=== PATIENT | male | born 1950 | race African-American/Black ===

== ENCOUNTER 2022-03-25 15:09 | Inpatient (IN) | payer OTHER, MEDICAID ==
[~2022-03-25] VITALS: Ht 177.8 cm; Wt 88.9 kg
[2022-03-25] MEDS ORDERED: SODIUM CHLORIDE 0.9% 1000ML BAG (SEPSIS BOLUS) IV ONE (16:30)
[2022-03-25] MEDS ORDERED: TETANUS, DIPHTHERIA, PERTUSSIS VAC/PF 0.5ML (>10YR OLD) IM ONE (17:15)
[2022-03-25] MEDS ORDERED: IBUPROFEN 400MG TABLET PO ONE (17:15)
[2022-03-25] MEDS ORDERED: ACETAMINOPHEN 325MG TABLET PO ONE (17:15)
[2022-03-25] MEDS: LIDOCAINE 5% PATCH TOP SCH (17:36)
[2022-03-25 17:53] LABS: HEMATOCRIT. 32.7 % (42.0-52.0); HEMOGLOBIN. 10.6 g/dL (14.0-18.0); MEAN CORPUSCULAR HEMOGLOBIN 30.6 pg (28.0-32.0); MEAN CORPUSCULAR VOLUME 94.2 fL (80.0-94.0); MEAN PLATELET VOLUME 7.3 fl (7.4-10.4); PLATELET 102 x1000/uL (130-400); RED BLOOD CELL COUNT 3.47 mill/uL (4.7-6.1)
[2022-03-25 18:05] LABS: CHLORIDE 111 mEq/L (98-107)
[2022-03-25 18:07] LABS: INR 1.1; PARTIAL THROMBOPLASTIN TIME 35.8 sec (23.4-31.0); PROTHROMBIN TIME 12.1 sec (9.6-11.0)
[2022-03-25 19:24] LABS: CLARITY URINE CLEAR (CLEAR); COLOR URINE DARK YELLOW (YELLOW); KETONES URINE NEGATIVE (NEGATIVE); LEUKOCYTE ESTERASE URINE TRACE (NEGATIVE); NITRITE URINE NEGATIVE (NEGATIVE); OCCULT BLOOD URINE 1+ (NEGATIVE); PH URINE 5.5 (4.5-8.0); PROTEIN URINE 1+ (NEGATIVE); SPECIFIC GRAVITY URINE 1.022 (1.005-1.030)
[2022-03-26] MEDS ORDERED: FOLI-43 PO (02:26)
[2022-03-26] MEDS ORDERED: FINA5TAB11 PO (02:26)
[2022-03-26] MEDS ORDERED: LATA2.5D14 EACHEYE (02:26)
[2022-03-26] MEDS ORDERED: CARV3.1242 PO (02:26)
[2022-03-26] MEDS ORDERED: FERR325T6 PO (02:26)
[2022-03-26] MEDS ORDERED: FURO40TA5 PO (02:26)
[2022-03-26] MEDS ORDERED: IPRA3AMP9 NEB (02:26)
[2022-03-26] MEDS ORDERED: DORZ10DR8 OP (02:37)
[2022-03-26] MEDS ORDERED: DOCU-150 PO (02:37)
[2022-03-26] MEDS ORDERED: BISA10SU62 RC (02:37)
[2022-03-26] MEDS ORDERED: MECL-217 PO (02:38)
[2022-03-26] MEDS ORDERED: TOPUD PO (02:42)
[2022-03-26] MEDS ORDERED: TRAM50TA3 PO (02:42)
[2022-03-26] MEDS ORDERED: OLOP5DRO25 EACHEYE (02:42)
[2022-03-26] MEDS ORDERED: SILV20CR13 TP (02:42)
[2022-03-26] MEDS ORDERED: TRAMADOL 50MG TABLET PO PRN (03:30)
[2022-03-26 03:57] VITALS: BP 115/62
[2022-03-26 04:48] LABS: PLATELET ESTIMATE DECREASED
[2022-03-26] MEDS: GABAPENTIN 100MG CAPSULE PO SCH ×3 (06:00→23:06)
[2022-03-26] MEDS: DORZOLAMIDE 2% OPHTH 10 ML BOTTLE BOTHEYE SCH ×3 (06:00→23:06)
[2022-03-26 08:00] VITALS: BP 118/72
[2022-03-26] MEDS: ASCORBIC ACID 500 MG TABLET PO SCH (08:42)
[2022-03-26] MEDS: DOCUSATE SODIUM 100MG CAPSULE PO SCH ×2 (08:42→17:07)
[2022-03-26] MEDS: FERROUS SULFATE 325MG TABLET PO SCH ×3 (08:42→17:07)
[2022-03-26] MEDS: FINASTERIDE 5MG TABLET PO SCH (08:43)
[2022-03-26] MEDS: FOLIC ACID 1MG TABLET PO SCH (08:43)
[2022-03-26] MEDS: CARVEDILOL 3.125 MG TABLET PO SCH ×2 (09:00→17:07)
[2022-03-26 12:00] VITALS: BP 102/69
[2022-03-26 12:15] LABS: HEMATOCRIT. 30.4 % (42.0-52.0); MEAN CORPUSCULAR HEMOGLOBIN 30.5 pg (28.0-32.0); MEAN CORPUSCULAR VOLUME 92.6 fL (80.0-94.0); MEAN PLATELET VOLUME 7.1 fl (7.4-10.4); PLATELET 93 x1000/uL (130-400); RED BLOOD CELL COUNT 3.29 mill/uL (4.7-6.1); RED CELL DISTRIBUTION WIDTH 16.6 % (11.6-14.6)
[2022-03-26 13:42] LABS: PLATELET ESTIMATE SLIGHTLY DECREASED
[2022-03-26 14:36] LABS: CHLORIDE 111 mEq/L (98-107)
[2022-03-26 16:00] VITALS: BP 132/75
[2022-03-26] MEDS: LIDOCAINE 5% PATCH TOP SCH (17:08)
[2022-03-26 20:00] VITALS: BP 113/63
[2022-03-26] MEDS ORDERED: ONDANSETRON HCL 4MG/2ML INJ IV PRN (20:00)
[2022-03-26] MEDS ORDERED: HYDROCODONE/ACETAMINOPHEN 5/325MG TABLET PO PRN (20:00)
[2022-03-26] MEDS ORDERED: CLONIDINE 0.1MG TABLET PO PRN (20:00)
[2022-03-26] MEDS ORDERED: MAGNESIUM/ALUMINUM HYDROXIDE/SIMETHICONE 30ML UDC PO PRN (20:00)
[2022-03-26] MEDS: ENOXAPARIN 40MG/0.4ML SYR SUBCUT SCH (23:05)
[2022-03-26] MEDS: LATANOPROST 0.005% OPHTH DROPS 2.5ML BOTHEYE SCH (23:05)
[2022-03-27] VITALS: BP 103/60
[2022-03-27] MEDS: CEFTRIAXONE 1,000 MG in DEXTROSE 5% WATER 50 ML IV SCH ×2 (00:29→20:39)
[2022-03-27 04:00] VITALS: BP 115/60
[2022-03-27 05:30] LABS: BASOPHILS % 0.8 % (0.0-2.0); EOSINOPHILS % 0.1 % (0.0-5.0); HEMATOCRIT. 31.7 % (42.0-52.0); HEMOGLOBIN. 10.3 g/dL (14.0-18.0); LYMPHOCYTES % 56.5 % (20.0-50.0); MEAN CORPUSCULAR HEMOGLOBIN 30.1 pg (28.0-32.0); MEAN CORPUSCULAR VOLUME 92.9 fL (80.0-94.0); MEAN PLATELET VOLUME 7.1 fl (7.4-10.4); NEUTROPHILS % 37.6 % (40.0-76.0); PLATELET 108 x1000/uL (130-400); RED BLOOD CELL COUNT 3.41 mill/uL (4.7-6.1); RED CELL DISTRIBUTION WIDTH 16.6 % (11.6-14.6)
[2022-03-27] MEDS: GABAPENTIN 100MG CAPSULE PO SCH ×4 (06:10→21:32)
[2022-03-27] MEDS: FERROUS SULFATE 325MG TABLET PO SCH ×3 (06:10→18:01)
[2022-03-27] MEDS: OMEPRAZOLE 20MG CAPSULE EXTENDED RELEASE PO SCH (06:10)
[2022-03-27] MEDS: DORZOLAMIDE 2% OPHTH 10 ML BOTTLE BOTHEYE SCH ×3 (06:10→21:29)
[2022-03-27] MEDS: ACETAMINOPHEN 325MG TABLET PO PRN (06:21)
[2022-03-27 08:00] VITALS: BP 82/44
[2022-03-27 08:18] LABS: CHLORIDE 111 mEq/L (98-107)
[2022-03-27 08:35] LABS: HDL CHOLESTEROL 16 mg/dL (40-59); LDL CHOLESTEROL 69 mg/dL (5-100); PHOSPHORUS 2.8 mg/dL (2.5-4.9)
[2022-03-27] MEDS: CARVEDILOL 3.125 MG TABLET PO SCH (09:00)
[2022-03-27] MEDS: DOCUSATE SODIUM 100MG CAPSULE PO SCH ×2 (09:10→18:00)
[2022-03-27] MEDS: FINASTERIDE 5MG TABLET PO SCH (09:10)
[2022-03-27] MEDS: ASCORBIC ACID 500 MG TABLET PO SCH (09:10)
[2022-03-27] MEDS: FOLIC ACID 1MG TABLET PO SCH (09:10)
[2022-03-27 12:00] VITALS: BP 83/44
[2022-03-27] MEDS ORDERED: SODIUM CHLORIDE 0.9% 500 ML IV NR (14:15)
[2022-03-27] MEDS ORDERED: AZITHROMYCIN 500 MG TABLET PO NR (15:30)
[2022-03-27 16:00] VITALS: BP 89/51
[2022-03-27] MEDS ORDERED: NALOXONE HCL 0.4MG/ML VIAL IV PRN (16:30)
[2022-03-27] MEDS: LIDOCAINE 5% PATCH TOP SCH (17:15)
[2022-03-27 20:00] VITALS: BP 97/63
[2022-03-27] MEDS: LATANOPROST 0.005% OPHTH DROPS 2.5ML BOTHEYE SCH (20:39)
[2022-03-27] MEDS: ENOXAPARIN 40MG/0.4ML SYR SUBCUT SCH (20:39)
[2022-03-28] VITALS: BP 93/57
[2022-03-28 04:00] VITALS: BP 95/60
[2022-03-28] MEDS: OMEPRAZOLE 20MG CAPSULE EXTENDED RELEASE PO SCH (05:42)
[2022-03-28] MEDS: GABAPENTIN 100MG CAPSULE PO SCH ×3 (05:42→22:01)
[2022-03-28] MEDS: DORZOLAMIDE 2% OPHTH 10 ML BOTTLE BOTHEYE SCH ×3 (05:44→22:03)
[2022-03-28 08:00] VITALS: BP 115/66
[2022-03-28] MEDS: AZITHROMYCIN 250 MG TABLET PO SCH (09:20)
[2022-03-28] MEDS: FERROUS SULFATE 325MG TABLET PO SCH ×3 (09:20→16:50)
[2022-03-28] MEDS: ASCORBIC ACID 500 MG TABLET PO SCH (09:20)
[2022-03-28] MEDS: FOLIC ACID 1MG TABLET PO SCH (09:20)
[2022-03-28] MEDS: DOCUSATE SODIUM 100MG CAPSULE PO SCH ×2 (09:20→16:49)
[2022-03-28] MEDS: FINASTERIDE 5MG TABLET PO SCH (09:21)
[2022-03-28 12:00] VITALS: BP 112/72
[2022-03-28] MEDS ORDERED: LIDOCAINE HCL 1% 10 MG/ML 10ML VIAL ONE (13:18)
[2022-03-28 16:00] VITALS: BP 108/80
[2022-03-28] MEDS: LIDOCAINE 5% PATCH TOP SCH (16:49)
[2022-03-28 20:00] VITALS: BP 95/68
[2022-03-28] MEDS ORDERED: IOHEXOL-350 100 ML BOTTLE ONE (21:51)
[2022-03-28] MEDS: ENOXAPARIN 40MG/0.4ML SYR SUBCUT SCH (22:02)
[2022-03-28] MEDS: CEFTRIAXONE 1,000 MG in DEXTROSE 5% WATER 50 ML IV SCH (22:02)
[2022-03-28] MEDS: LATANOPROST 0.005% OPHTH DROPS 2.5ML BOTHEYE SCH (22:03)
[2022-03-29] VITALS: BP 98/61
[2022-03-29 04:00] VITALS: BP 103/76
[2022-03-29] MEDS: GABAPENTIN 100MG CAPSULE PO SCH ×3 (05:40→21:29)
[2022-03-29] MEDS: DORZOLAMIDE 2% OPHTH 10 ML BOTTLE BOTHEYE SCH ×3 (05:40→21:32)
[2022-03-29] MEDS: OMEPRAZOLE 20MG CAPSULE EXTENDED RELEASE PO SCH (05:40)
[2022-03-29 08:00] VITALS: BP 104/70
[2022-03-29] MEDS: AZITHROMYCIN 250 MG TABLET PO SCH (08:30)
[2022-03-29] MEDS: DOCUSATE SODIUM 100MG CAPSULE PO SCH ×2 (08:30→17:50)
[2022-03-29] MEDS: FOLIC ACID 1MG TABLET PO SCH (08:30)
[2022-03-29] MEDS: ASCORBIC ACID 500 MG TABLET PO SCH (08:30)
[2022-03-29] MEDS: FINASTERIDE 5MG TABLET PO SCH (08:30)
[2022-03-29] MEDS: FERROUS SULFATE 325MG TABLET PO SCH ×3 (08:31→17:50)
[2022-03-29 12:00] VITALS: BP 119/62
[2022-03-29 16:00] VITALS: BP 110/66
[2022-03-29] MEDS: LIDOCAINE 5% PATCH TOP SCH (17:50)
[2022-03-29 20:00] VITALS: BP 111/73
[2022-03-29] MEDS: ENOXAPARIN 40MG/0.4ML SYR SUBCUT SCH (21:29)
[2022-03-29] MEDS: CEFTRIAXONE 1,000 MG in DEXTROSE 5% WATER 50 ML IV SCH (21:29)
[2022-03-29] MEDS: LATANOPROST 0.005% OPHTH DROPS 2.5ML BOTHEYE SCH (21:31)
[2022-03-30] VITALS: BP 97/67
[2022-03-30 04:00] VITALS: BP 122/79
[2022-03-30] MEDS: GABAPENTIN 100MG CAPSULE PO SCH ×3 (06:06→22:21)
[2022-03-30] MEDS: OMEPRAZOLE 20MG CAPSULE EXTENDED RELEASE PO SCH (06:06)
[2022-03-30] MEDS: DORZOLAMIDE 2% OPHTH 10 ML BOTTLE BOTHEYE SCH ×3 (06:07→22:22)
[2022-03-30 08:00] VITALS: BP 126/74
[2022-03-30 08:25] LABS: HEMATOCRIT. 27.3 % (42.0-52.0); HEMOGLOBIN. 9.1 g/dL (14.0-18.0); MEAN CORPUSCULAR HEMOGLOBIN 30.5 pg (28.0-32.0); MEAN CORPUSCULAR VOLUME 91.9 fL (80.0-94.0); MEAN PLATELET VOLUME 7.3 fl (7.4-10.4); PLATELET 105 x1000/uL (130-400); RED BLOOD CELL COUNT 2.97 mill/uL (4.7-6.1); RED CELL DISTRIBUTION WIDTH 16.3 % (11.6-14.6)
[2022-03-30] MEDS: FERROUS SULFATE 325MG TABLET PO SCH ×3 (09:17→16:57)
[2022-03-30] MEDS: FINASTERIDE 5MG TABLET PO SCH (09:17)
[2022-03-30] MEDS: FOLIC ACID 1MG TABLET PO SCH (09:17)
[2022-03-30] MEDS: AZITHROMYCIN 250 MG TABLET PO SCH (09:17)
[2022-03-30] MEDS: ASCORBIC ACID 500 MG TABLET PO SCH (09:17)
[2022-03-30] MEDS: DOCUSATE SODIUM 100MG CAPSULE PO SCH ×2 (09:17→16:57)
[2022-03-30 09:55] LABS: CHLORIDE 111 mEq/L (98-107)
[2022-03-30 12:00] VITALS: BP 108/75
[2022-03-30 16:00] VITALS: BP 94/68
[2022-03-30] MEDS: LIDOCAINE 5% PATCH TOP SCH (16:57)
[2022-03-30 17:40] LABS: PLATELET ESTIMATE DECREASED
[2022-03-30 20:00] VITALS: BP 108/70
[2022-03-30] MEDS: ENOXAPARIN 40MG/0.4ML SYR SUBCUT SCH (22:20)
[2022-03-30] MEDS: CEFTRIAXONE 1,000 MG in DEXTROSE 5% WATER 50 ML IV SCH (22:20)
[2022-03-30] MEDS: LATANOPROST 0.005% OPHTH DROPS 2.5ML BOTHEYE SCH (22:21)
[2022-03-31] VITALS: BP 98/62
[2022-03-31 04:00] VITALS: BP 110/72
[2022-03-31] MEDS: GABAPENTIN 100MG CAPSULE PO SCH ×3 (06:13→21:35)
[2022-03-31] MEDS: OMEPRAZOLE 20MG CAPSULE EXTENDED RELEASE PO SCH (06:13)
[2022-03-31] MEDS: DORZOLAMIDE 2% OPHTH 10 ML BOTTLE BOTHEYE SCH ×3 (06:14→21:37)
[2022-03-31] MEDS: FOLIC ACID 1MG TABLET PO SCH (09:38)
[2022-03-31] MEDS: FERROUS SULFATE 325MG TABLET PO SCH ×3 (09:39→18:05)
[2022-03-31] MEDS: FINASTERIDE 5MG TABLET PO SCH (09:39)
[2022-03-31] MEDS: DOCUSATE SODIUM 100MG CAPSULE PO SCH ×2 (09:39→18:04)
[2022-03-31] MEDS: AZITHROMYCIN 250 MG TABLET PO SCH (09:39)
[2022-03-31] MEDS: ASCORBIC ACID 500 MG TABLET PO SCH (09:39)
[2022-03-31 12:00] VITALS: BP 111/82
[2022-03-31 16:00] VITALS: BP 109/63
[2022-03-31] MEDS: LIDOCAINE 5% PATCH TOP SCH (17:15)
[2022-03-31 20:00] VITALS: BP 112/57
[2022-03-31] MEDS: CEFTRIAXONE 1,000 MG in DEXTROSE 5% WATER 50 ML IV SCH (21:35)
[2022-03-31] MEDS: ENOXAPARIN 40MG/0.4ML SYR SUBCUT SCH (21:36)
[2022-03-31] MEDS: LATANOPROST 0.005% OPHTH DROPS 2.5ML BOTHEYE SCH (21:37)
[2022-04-01] VITALS: BP 106/61
[2022-04-01 04:00] VITALS: BP 100/63
[2022-04-01] MEDS: OMEPRAZOLE 20MG CAPSULE EXTENDED RELEASE PO SCH (05:45)
[2022-04-01] MEDS: GABAPENTIN 100MG CAPSULE PO SCH ×3 (05:45→23:53)
[2022-04-01] MEDS: DORZOLAMIDE 2% OPHTH 10 ML BOTTLE BOTHEYE SCH ×3 (05:46→23:55)
[2022-04-01 07:08] LABS: FOLICLE STIMULATING HORMONE 20.5 mIU/mL (1.5-12.4); LUTEINIZING HORMONE 6.3 mIU/mL (1.7-8.6); PROLACTIN 16.8 ng/mL (4.0-15.2)
[2022-04-01 08:00] VITALS: BP 117/75
[2022-04-01] MEDS: ASCORBIC ACID 500 MG TABLET PO SCH (09:19)
[2022-04-01] MEDS: FERROUS SULFATE 325MG TABLET PO SCH ×3 (09:19→16:46)
[2022-04-01] MEDS: DOCUSATE SODIUM 100MG CAPSULE PO SCH ×2 (09:19→16:46)
[2022-04-01] MEDS: FINASTERIDE 5MG TABLET PO SCH (09:19)
[2022-04-01] MEDS: FOLIC ACID 1MG TABLET PO SCH (09:19)
[2022-04-01 12:00] VITALS: BP 103/58
[2022-04-01] MEDS: ACETAMINOPHEN 325MG TABLET PO PRN (12:12)
[2022-04-01 16:00] VITALS: BP 105/61
[2022-04-01] MEDS: LIDOCAINE 5% PATCH TOP SCH (16:48)
[2022-04-01 20:00] VITALS: BP 109/70
[2022-04-01] MEDS: ENOXAPARIN 40MG/0.4ML SYR SUBCUT SCH (23:53)
[2022-04-01] MEDS: LATANOPROST 0.005% OPHTH DROPS 2.5ML BOTHEYE SCH (23:55)
[2022-04-02] VITALS: BP 123/74
[2022-04-02 04:00] VITALS: BP 108/59
[2022-04-02] MEDS: GABAPENTIN 100MG CAPSULE PO SCH ×3 (05:02→22:58)
[2022-04-02] MEDS: DORZOLAMIDE 2% OPHTH 10 ML BOTTLE BOTHEYE SCH ×3 (05:02→23:00)
[2022-04-02 08:00] VITALS: BP 104/47
[2022-04-02] MEDS: FINASTERIDE 5MG TABLET PO SCH (09:36)
[2022-04-02] MEDS: DOCUSATE SODIUM 100MG CAPSULE PO SCH ×2 (09:36→16:37)
[2022-04-02] MEDS: FOLIC ACID 1MG TABLET PO SCH (09:36)
[2022-04-02] MEDS: FERROUS SULFATE 325MG TABLET PO SCH ×3 (09:36→16:37)
[2022-04-02] MEDS: ASCORBIC ACID 500 MG TABLET PO SCH (09:36)
[2022-04-02] MEDS: BROMOCRIPTINE MESYLATE 2.5 MG TABLET PO SCH (09:36)
[2022-04-02 12:00] VITALS: BP 96/52
[2022-04-02] MEDS: GUAIFENESIN-DM 200MG-20MG/10ML UDC PO PRN (12:56)
[2022-04-02 16:00] VITALS: BP 105/67
[2022-04-02] MEDS: LIDOCAINE 5% PATCH TOP SCH (16:47)
[2022-04-02 20:00] VITALS: BP 117/64
[2022-04-02] MEDS: LATANOPROST 0.005% OPHTH DROPS 2.5ML BOTHEYE SCH (22:59)
[2022-04-02] MEDS: ENOXAPARIN 40MG/0.4ML SYR SUBCUT SCH (22:59)
[2022-04-03] VITALS: BP 107/61
[2022-04-03 04:00] VITALS: BP 108/63
[2022-04-03] MEDS: GABAPENTIN 100MG CAPSULE PO SCH ×3 (06:16→22:24)
[2022-04-03] MEDS: DORZOLAMIDE 2% OPHTH 10 ML BOTTLE BOTHEYE SCH ×3 (06:18→22:25)
[2022-04-03 08:00] VITALS: BP 112/66
[2022-04-03] MEDS: BROMOCRIPTINE MESYLATE 2.5 MG TABLET PO SCH (09:19)
[2022-04-03] MEDS: DOCUSATE SODIUM 100MG CAPSULE PO SCH ×2 (09:20→17:09)
[2022-04-03] MEDS: FOLIC ACID 1MG TABLET PO SCH (09:20)
[2022-04-03] MEDS: ASCORBIC ACID 500 MG TABLET PO SCH (09:20)
[2022-04-03] MEDS: FERROUS SULFATE 325MG TABLET PO SCH ×3 (09:20→17:09)
[2022-04-03] MEDS: FINASTERIDE 5MG TABLET PO SCH (09:28)
[2022-04-03 12:00] VITALS: BP 95/57
[2022-04-03 13:33] LABS: HEMATOCRIT. 25.2 % (42.0-52.0); HEMOGLOBIN. 8.3 g/dL (14.0-18.0); MEAN CORPUSCULAR HEMOGLOBIN 30.4 pg (28.0-32.0); MEAN CORPUSCULAR VOLUME 92.5 fL (80.0-94.0); MEAN PLATELET VOLUME 6.9 fl (7.4-10.4); PLATELET 112 x1000/uL (130-400); RED BLOOD CELL COUNT 2.72 mill/uL (4.7-6.1)
[2022-04-03 13:44] LABS: CHLORIDE 113 mEq/L (98-107)
[2022-04-03 14:18] LABS: PLATELET ESTIMATE SLIGHTLY DECREASED
[2022-04-03 16:00] VITALS: BP 113/51
[2022-04-03 20:00] VITALS: BP 112/71
[2022-04-03] MEDS: LATANOPROST 0.005% OPHTH DROPS 2.5ML BOTHEYE SCH (22:24)
[2022-04-04] VITALS (7 sets, daily range): BP systolic 95–134; BP diastolic 55–74
[2022-04-04] MEDS: GABAPENTIN 100MG CAPSULE PO SCH ×3 (06:43→21:14)
[2022-04-04] MEDS: DORZOLAMIDE 2% OPHTH 10 ML BOTTLE BOTHEYE SCH ×3 (06:44→21:15)
[2022-04-04] MEDS: FERROUS SULFATE 325MG TABLET PO SCH ×3 (07:10→17:37)
[2022-04-04] MEDS: DOCUSATE SODIUM 100MG CAPSULE PO SCH ×2 (09:28→17:37)
[2022-04-04] MEDS: FOLIC ACID 1MG TABLET PO SCH (09:28)
[2022-04-04] MEDS: ASCORBIC ACID 500 MG TABLET PO SCH (09:28)
[2022-04-04] MEDS: FINASTERIDE 5MG TABLET PO SCH (09:28)
[2022-04-04] MEDS: BROMOCRIPTINE MESYLATE 2.5 MG TABLET PO SCH (09:28)
[2022-04-04] MEDS: LATANOPROST 0.005% OPHTH DROPS 2.5ML BOTHEYE SCH (21:15)
[2022-04-05] VITALS: BP 103/67
[2022-04-05 04:00] VITALS: BP 111/76
[2022-04-05] MEDS: DORZOLAMIDE 2% OPHTH 10 ML BOTTLE BOTHEYE SCH ×3 (06:00→21:02)
[2022-04-05] MEDS: GABAPENTIN 100MG CAPSULE PO SCH ×3 (06:23→21:02)
[2022-04-05] MEDS: FERROUS SULFATE 325MG TABLET PO SCH ×3 (06:23→18:00)
[2022-04-05] MEDS: ASCORBIC ACID 500 MG TABLET PO SCH (08:46)
[2022-04-05] MEDS: DOCUSATE SODIUM 100MG CAPSULE PO SCH ×2 (08:46→18:00)
[2022-04-05] MEDS: FINASTERIDE 5MG TABLET PO SCH (08:46)
[2022-04-05] MEDS: FOLIC ACID 1MG TABLET PO SCH (08:46)
[2022-04-05] MEDS: BROMOCRIPTINE MESYLATE 2.5 MG TABLET PO SCH (08:46)
[2022-04-05] MEDS: GUAIFENESIN-DM 200MG-20MG/10ML UDC PO PRN (08:46)
[2022-04-05 12:00] VITALS: BP 110/63
[2022-04-05 16:00] VITALS: BP 104/54
[2022-04-05 20:00] VITALS: BP 109/68
[2022-04-05] MEDS: LATANOPROST 0.005% OPHTH DROPS 2.5ML BOTHEYE SCH (21:02)
[2022-04-06] VITALS: BP 106/65
[2022-04-06 04:00] VITALS: BP 110/63
[2022-04-06] MEDS: DORZOLAMIDE 2% OPHTH 10 ML BOTTLE BOTHEYE SCH ×3 (06:16→23:12)
[2022-04-06] MEDS: FERROUS SULFATE 325MG TABLET PO SCH ×3 (06:16→17:47)
[2022-04-06] MEDS: GABAPENTIN 100MG CAPSULE PO SCH ×3 (06:16→23:11)
[2022-04-06 08:00] VITALS: BP 112/66
[2022-04-06] MEDS: BROMOCRIPTINE MESYLATE 2.5 MG TABLET PO SCH (08:56)
[2022-04-06] MEDS: FOLIC ACID 1MG TABLET PO SCH (08:56)
[2022-04-06] MEDS: FINASTERIDE 5MG TABLET PO SCH (08:56)
[2022-04-06] MEDS: DOCUSATE SODIUM 100MG CAPSULE PO SCH ×2 (08:56→17:47)
[2022-04-06] MEDS: ASCORBIC ACID 500 MG TABLET PO SCH (08:56)
[2022-04-06 12:00] VITALS: BP 103/54
[2022-04-06 15:06] LABS: BG BASE EXCESS -0.8 mmol/L (-2.0-2.0); BG CARBOXYHEMOGLOBIN 0.6 % (0.5-1.5); BG DEOXYHEMOGLOBIN 5.9 % (0.0-5.0); BG FRACTION INSPIRED OXYGEN 21; BG HCO3 ACT 22.1 mmol/L (22.0-26.0); BG METHEMOGLOBIN 0.3 % (0.0-1.5); BG OXYHEMOGLOBIN 93.2 % (94.0-97.0); BG PCO2 30.2 mmHg (35.0-45.0); BG PH 7.483 (7.350-7.450); BG SAMPLE SITE RIGHT RADIAL; BG TOTAL HEMOGLOBIN 9.3 g/dL (12.0-18.0); BG VENT MODE ROOM AIR
[2022-04-06 16:30] VITALS: BP 107/56
[2022-04-06 20:00] VITALS: BP 101/68
[2022-04-06] MEDS: ACETAMINOPHEN 325MG TABLET PO PRN (23:10)
[2022-04-06] MEDS: LATANOPROST 0.005% OPHTH DROPS 2.5ML BOTHEYE SCH (23:12)
[2022-04-07] MEDS ORDERED: MIDODRINE HCL 5MG TABLET PO NR (02:15)
[2022-04-07 04:00] VITALS: BP 94/58
[2022-04-07] MEDS: GABAPENTIN 100MG CAPSULE PO SCH ×3 (05:35→21:52)
[2022-04-07] MEDS: DORZOLAMIDE 2% OPHTH 10 ML BOTTLE BOTHEYE SCH ×3 (05:39→21:53)
[2022-04-07] MEDS: MIDODRINE HCL 5MG TABLET PO SCH ×3 (05:40→21:51)
[2022-04-07 08:00] VITALS: BP 114/65
[2022-04-07] MEDS: FOLIC ACID 1MG TABLET PO SCH (09:33)
[2022-04-07] MEDS: FINASTERIDE 5MG TABLET PO SCH (09:33)
[2022-04-07] MEDS: DOCUSATE SODIUM 100MG CAPSULE PO SCH ×2 (09:33→17:36)
[2022-04-07] MEDS: ASCORBIC ACID 500 MG TABLET PO SCH (09:33)
[2022-04-07] MEDS: BROMOCRIPTINE MESYLATE 2.5 MG TABLET PO SCH (09:34)
[2022-04-07] MEDS: FERROUS SULFATE 325MG TABLET PO SCH ×3 (09:34→17:36)
[2022-04-07 12:00] VITALS: BP 106/63
[2022-04-07 16:00] VITALS: BP 106/60
[2022-04-07 20:46] VITALS: BP 92/63
[2022-04-07] MEDS: LATANOPROST 0.005% OPHTH DROPS 2.5ML BOTHEYE SCH (21:52)
[2022-04-08] VITALS: BP 114/63
[2022-04-08 01:09] LABS: CHLORIDE 108 mEq/L (98-107)
[2022-04-08 04:00] VITALS: BP 118/60
[2022-04-08 05:05] LABS: BASOPHILS % 0.9 % (0.0-2.0); EOSINOPHILS % 0.1 % (0.0-5.0); HEMATOCRIT. 26.7 % (42.0-52.0); HEMOGLOBIN. 8.7 g/dL (14.0-18.0); LYMPHOCYTES % 51.7 % (20.0-50.0); MEAN CORPUSCULAR HEMOGLOBIN 29.8 pg (28.0-32.0); MEAN CORPUSCULAR VOLUME 91.2 fL (80.0-94.0); MEAN PLATELET VOLUME 7.6 fl (7.4-10.4); MONOCYTES % 7.6 % (2.0-8.0); NEUTROPHILS % 39.7 % (40.0-76.0); PLATELET 104 x1000/uL (130-400); RED BLOOD CELL COUNT 2.93 mill/uL (4.7-6.1); RED CELL DISTRIBUTION WIDTH 16.3 % (11.6-14.6)
[2022-04-08] MEDS: MIDODRINE HCL 5MG TABLET PO SCH ×3 (05:38→21:34)
[2022-04-08] MEDS: DORZOLAMIDE 2% OPHTH 10 ML BOTTLE BOTHEYE SCH ×3 (06:49→21:35)
[2022-04-08] MEDS: FERROUS SULFATE 325MG TABLET PO SCH ×3 (06:49→17:06)
[2022-04-08] MEDS: GABAPENTIN 100MG CAPSULE PO SCH ×3 (06:49→21:34)
[2022-04-08] MEDS: ASCORBIC ACID 500 MG TABLET PO SCH (08:34)
[2022-04-08] MEDS: DOCUSATE SODIUM 100MG CAPSULE PO SCH ×2 (08:34→17:00)
[2022-04-08] MEDS: FINASTERIDE 5MG TABLET PO SCH (08:34)
[2022-04-08] MEDS: BROMOCRIPTINE MESYLATE 2.5 MG TABLET PO SCH (08:35)
[2022-04-08 08:38] VITALS: BP 107/60
[2022-04-08] MEDS: FOLIC ACID 1MG TABLET PO SCH (08:39)
[2022-04-08 12:12] VITALS: BP 97/53
[2022-04-08 16:03] VITALS: BP 107/61
[2022-04-08] MEDS: LATANOPROST 0.005% OPHTH DROPS 2.5ML BOTHEYE SCH (21:35)
[2022-04-09] VITALS (7 sets, daily range): BP systolic 85–115; BP diastolic 52–69
[2022-04-09 00:02] LABS: CLARITY URINE CLOUDY (CLEAR); COLOR URINE DARK YELLOW (YELLOW); KETONES URINE TRACE (NEGATIVE); LEUKOCYTE ESTERASE URINE 1+ (NEGATIVE); NITRITE URINE NEGATIVE (NEGATIVE); OCCULT BLOOD URINE 3+ (NEGATIVE); PH URINE 5.5 (4.5-8.0); PROTEIN URINE 2+ (NEGATIVE); SPECIFIC GRAVITY URINE 1.024 (1.005-1.030)
[2022-04-09] MEDS: MIDODRINE HCL 5MG TABLET PO SCH ×3 (06:00→21:11)
[2022-04-09] MEDS: FERROUS SULFATE 325MG TABLET PO SCH ×3 (06:06→16:57)
[2022-04-09] MEDS: GABAPENTIN 100MG CAPSULE PO SCH ×3 (06:07→21:11)
[2022-04-09] MEDS: DORZOLAMIDE 2% OPHTH 10 ML BOTTLE BOTHEYE SCH ×3 (06:07→21:13)
[2022-04-09] MEDS: ASCORBIC ACID 500 MG TABLET PO SCH (09:34)
[2022-04-09] MEDS: FINASTERIDE 5MG TABLET PO SCH (09:35)
[2022-04-09] MEDS: DOCUSATE SODIUM 100MG CAPSULE PO SCH ×2 (09:35→16:56)
[2022-04-09] MEDS: FOLIC ACID 1MG TABLET PO SCH (09:35)
[2022-04-09] MEDS: BROMOCRIPTINE MESYLATE 2.5 MG TABLET PO SCH (09:35)
[2022-04-09] MEDS: GUAIFENESIN-DM 200MG-20MG/10ML UDC PO PRN (21:11)
[2022-04-09] MEDS: LATANOPROST 0.005% OPHTH DROPS 2.5ML BOTHEYE SCH (21:12)
[2022-04-10] VITALS: BP 90/62
[2022-04-10 04:00] VITALS: BP 98/58
[2022-04-10] MEDS: GUAIFENESIN-DM 200MG-20MG/10ML UDC PO PRN (05:09)
[2022-04-10] MEDS: GABAPENTIN 100MG CAPSULE PO SCH ×2 (05:09→13:35)
[2022-04-10] MEDS: DORZOLAMIDE 2% OPHTH 10 ML BOTTLE BOTHEYE SCH ×3 (05:10→22:00)
[2022-04-10] MEDS: MIDODRINE HCL 5MG TABLET PO SCH ×3 (05:10→23:07)
[2022-04-10 08:00] VITALS: BP 102/65
[2022-04-10] MEDS: BROMOCRIPTINE MESYLATE 2.5 MG TABLET PO SCH (09:08)
[2022-04-10] MEDS: FINASTERIDE 5MG TABLET PO SCH (09:08)
[2022-04-10] MEDS: DOCUSATE SODIUM 100MG CAPSULE PO SCH ×2 (09:09→18:07)
[2022-04-10] MEDS: ASCORBIC ACID 500 MG TABLET PO SCH (09:09)
[2022-04-10] MEDS: FOLIC ACID 1MG TABLET PO SCH (09:09)
[2022-04-10] MEDS: FERROUS SULFATE 325MG TABLET PO SCH ×3 (09:09→18:06)
[2022-04-10 12:00] VITALS: BP 89/55
[2022-04-10 16:00] VITALS: BP 94/55
[2022-04-10] MEDS: LATANOPROST 0.005% OPHTH DROPS 2.5ML BOTHEYE SCH (23:04)
[2022-04-11] MEDS: GABAPENTIN 100MG CAPSULE PO SCH ×4 (06:00→22:43)
[2022-04-11] MEDS: MIDODRINE HCL 5MG TABLET PO SCH ×3 (06:00→22:44)
[2022-04-11] MEDS: DORZOLAMIDE 2% OPHTH 10 ML BOTTLE BOTHEYE SCH ×3 (06:00→22:45)
[2022-04-11] MEDS: FERROUS SULFATE 325MG TABLET PO SCH ×3 (07:10→16:34)
[2022-04-11 08:00] VITALS: BP 90/57
[2022-04-11] MEDS: BROMOCRIPTINE MESYLATE 2.5 MG TABLET PO SCH (09:29)
[2022-04-11] MEDS: DOCUSATE SODIUM 100MG CAPSULE PO SCH ×2 (09:30→16:34)
[2022-04-11] MEDS: FOLIC ACID 1MG TABLET PO SCH (09:30)
[2022-04-11] MEDS: ASCORBIC ACID 500 MG TABLET PO SCH (09:30)
[2022-04-11] MEDS: FINASTERIDE 5MG TABLET PO SCH (09:44)
[2022-04-11 12:00] VITALS: BP 98/60
[2022-04-11 16:00] VITALS: BP 100/53
[2022-04-11 20:00] VITALS: BP 91/57
[2022-04-11] MEDS: LATANOPROST 0.005% OPHTH DROPS 2.5ML BOTHEYE SCH (22:45)
[2022-04-12] VITALS: BP 89/55
[2022-04-12 04:00] VITALS: BP_SYST 110; BP_DIAS 64; BP_DIAS 84
[2022-04-12] MEDS: MIDODRINE HCL 5MG TABLET PO SCH (06:00)
[2022-04-12] MEDS: GABAPENTIN 100MG CAPSULE PO SCH (06:32)
[2022-04-12] MEDS: DORZOLAMIDE 2% OPHTH 10 ML BOTTLE BOTHEYE SCH (06:33)
[2022-04-12 07:15] VITALS: BP 91/57
[2022-04-12 08:00] VITALS: BP 123/70
[2022-04-12] MEDS: BROMOCRIPTINE MESYLATE 2.5 MG TABLET PO SCH (09:00)
[2022-04-12] MEDS: FERROUS SULFATE 325MG TABLET PO SCH ×2 (10:03→12:10)
[2022-04-12] MEDS: FINASTERIDE 5MG TABLET PO SCH (10:04)
[2022-04-12] MEDS: DOCUSATE SODIUM 100MG CAPSULE PO SCH (10:04)
[2022-04-12] MEDS: FOLIC ACID 1MG TABLET PO SCH (10:04)
[2022-04-12] MEDS: ASCORBIC ACID 500 MG TABLET PO SCH (10:04)
[2022-04-12 11:20] VITALS: BP 123/70
[2022-04-12 12:00] VITALS: BP 102/60
== END 2022-04-12 13:35 | DRG 871 ==
LOC: ER 15:09 → EDBEDREQTM 22:35 → EDBEDREQ 22:35 → ENRESERV 22:42 → 7EST 23:04 → EDBEDREQ 23:05
PROVIDERS: ADMIT Internal Medicine; ATTEND Internal Medicine
PROC: 0HQ1XZZ Repair Face Skin, External Approach (ICD-10-PCS; principal; 2022-03-25)
PROC: 02HV33Z Insertion of Infusion Device into Superior Vena Cava, Percutaneous Approach (ICD-10-PCS; 2022-03-28)
PROC: B548ZZA Ultrasonography of Superior Vena Cava, Guidance (ICD-10-PCS; 2022-03-28)
PROC: 02HV33Z Insertion of Infusion Device into Superior Vena Cava, Percutaneous Approach (ICD-10-PCS; 2022-04-07)
PROC: B548ZZA Ultrasonography of Superior Vena Cava, Guidance (ICD-10-PCS; 2022-04-07)
DX: A41.89 Other specified sepsis (principal); J12.82 Pneumonia due to coronavirus disease 2019; U07.1 COVID-19; N39.0 Urinary tract infection, site not specified; E87.20 Acidosis, unspecified; R65.20 Severe sepsis without septic shock; I11.0 Hypertensive heart disease with heart failure; I50.9 Heart failure, unspecified; S01.111A Laceration without foreign body of right eyelid and periocular area, initial encounter; D64.9 Anemia, unspecified; I25.10 Atherosclerotic heart disease of native coronary artery without angina pectoris; D69.6 Thrombocytopenia, unspecified; I95.9 Hypotension, unspecified; I48.91 Unspecified atrial fibrillation; D35.2 Benign neoplasm of pituitary gland; L89.156 Pressure-induced deep tissue damage of sacral region; G89.29 Other chronic pain; Z79.899 Other long term (current) drug therapy; Z95.0 Presence of cardiac pacemaker; W06.XXXA Fall from bed, initial encounter; Y92.129 Unspecified place in nursing home as the place of occurrence of the external cause; Y93.89 Activity, other specified; Y99.8 Other external cause status
CPT/HCPCS: 36415; 36573; 36600; 70496; 71045; 71100; 72170; 73030; 73060; 80048; 80053; 80061; 80076; 81003; 82140; 82270; 82375; 82533; 82805; 83001; 83002; 83605; 83735; 83880; 84100; 84145; 84146; 84439; 84443; 84481; 84484; 85025; 87070; 87426; 90715; 93005; 93970; 97162; 97166; 97535; 99285; C1725; C9803; J0696; J1650; J3490; J7030; J7060; Q9967

== ENCOUNTER 2022-04-22 14:51 | Inpatient (IN) | payer OTHER, MEDICAID ==
[~2022-04-22] VITALS: Ht 180.3 cm; Wt 87.3 kg
[~2022-04-22 14:51] MED LIST: BISA10SU62 RC; CARV3.1242 PO; DOCU-150 PO; DORZ10DR8 OP; FERR325T6 PO; FINA5TAB11 PO; FOLI-43 PO; FURO40TA5 PO; IPRA3AMP9 NEB; LATA2.5D14 EACHEYE; MECL-217 PO; OLOP5DRO25 EACHEYE; SILV20CR13 TP; TOPUD PO; TRAM50TA3 PO
[2022-04-22 16:09] LABS: HEMATOCRIT. 22.8 % (42.0-52.0); HEMOGLOBIN. 7.1 g/dL (14.0-18.0); MEAN CORPUSCULAR HEMOGLOBIN 29.3 pg (28.0-32.0); MEAN CORPUSCULAR VOLUME 94.3 fL (80.0-94.0); MEAN PLATELET VOLUME 8.8 fl (7.4-10.4); PLATELET 93 x1000/uL (130-400); RED BLOOD CELL COUNT 2.42 mill/uL (4.7-6.1); RED CELL DISTRIBUTION WIDTH 19.2 % (11.6-14.6)
[2022-04-22 16:17] LABS: CHLORIDE 114 mEq/L (98-107)
[2022-04-22] MEDS ORDERED: SODIUM CHLORIDE 0.9% 1,000 ML IV ONE (16:30)
[2022-04-22 19:00] VITALS: BP 104/69
[2022-04-22 19:25] LABS: PLATELET ESTIMATE DECREASED
[2022-04-22 20:00] VITALS: BP 106/65
[2022-04-22] MEDS: INSULIN LISPRO 100 UNITS/ML SUBCUT SCH (21:00)
[2022-04-22] MEDS ORDERED: DEXTROSE 50% WATER 50ML SYRINGE IV PRN (21:00)
[2022-04-22] MEDS: BLOOD SUGAR DIAGNOSTIC STRIP TEST SCH (21:55)
[2022-04-23] VITALS: BP 100/55
[2022-04-23 04:00] VITALS: BP 91/53
[2022-04-23 05:58] LABS: CHLORIDE 117 mEq/L (98-107)
[2022-04-23 06:04] LABS: TOTAL IRON BINDING CAPACITY 127 ug/dL (250-450)
[2022-04-23 07:04] LABS: HEMATOCRIT. 22.6 % (42.0-52.0); HEMOGLOBIN. 7.1 g/dL (14.0-18.0); MEAN CORPUSCULAR HEMOGLOBIN 29.3 pg (28.0-32.0); MEAN PLATELET VOLUME 7.7 fl (7.4-10.4); PLATELET 68 x1000/uL (130-400); RED BLOOD CELL COUNT 2.44 mill/uL (4.7-6.1); RED CELL DISTRIBUTION WIDTH 18.6 % (11.6-14.6)
[2022-04-23] MEDS: INSULIN LISPRO 100 UNITS/ML SUBCUT SCH ×4 (07:10→20:45)
[2022-04-23] MEDS: BLOOD SUGAR DIAGNOSTIC STRIP TEST SCH ×4 (07:21→20:44)
[2022-04-23 08:00] VITALS: BP 97/57
[2022-04-23] MEDS: PANTOPRAZOLE SODIUM 40 MG/VIAL IV SCH (09:21)
[2022-04-23] MEDS ORDERED: NON FORMULARY PATIENT HOME MED XX SCH (11:30)
[2022-04-23] MEDS ORDERED: NAPHAZOLINE HCL/PHENIR MAL OPHTH SOLN 15ML EACHEYE PRN (11:45)
[2022-04-23 12:00] VITALS: BP 91/62
[2022-04-23] MEDS: FINASTERIDE 5MG TABLET PO SCH (12:00)
[2022-04-23] MEDS: FOLIC ACID 1MG TABLET PO SCH (12:00)
[2022-04-23] MEDS: DEXT 5%/0.45% NACL 1000ML 1,000 ML IV SCH (12:28)
[2022-04-23 13:49] LABS: PLATELET ESTIMATE DECREASED
[2022-04-23 13:51] LABS: INR 1.1; PROTHROMBIN TIME 12.2 sec (9.6-11.0)
[2022-04-23 14:01] LABS: T4 FREE 0.86 ng/dL (0.76-1.46)
[2022-04-23] MEDS: DORZOLAMIDE 2% OPHTH 10 ML BOTTLE BOTHEYE SCH ×2 (14:25→20:45)
[2022-04-23 14:30] LABS: HEPATITIS B SURFACE ANTIGEN NEGATIVE
[2022-04-23 14:58] LABS: FOLIC ACID (FOLATE) SERUM > 20.00 ng/mL (>5.38); VITAMIN B12 SERUM > 2000.0 pg/mL (211-911)
[2022-04-23 15:05] LABS: FERRITIN 1837 ng/mL (22-322)
[2022-04-23 16:00] VITALS: BP 92/66
[2022-04-23 17:34] LABS: HEMATOCRIT 24.5 % (42.0-52.0); HEMOGLOBIN 7.4 g/dL (14.0-18.0)
[2022-04-23 20:00] VITALS: BP 98/60
[2022-04-23] MEDS: LATANOPROST 0.005% OPHTH DROPS 2.5ML EACHEYE SCH (20:44)
[2022-04-23] MEDS: CARVEDILOL 3.125 MG TABLET PO SCH (20:44)
[2022-04-24] VITALS (7 sets, daily range): BP systolic 92–113; BP diastolic 59–81
[2022-04-24 00:08] LABS: HEMATOCRIT 23.9 % (42.0-52.0); HEMOGLOBIN 7.4 g/dL (14.0-18.0)
[2022-04-24] MEDS: DEXT 5%/0.45% NACL 1000ML 1,000 ML IV SCH ×2 (01:08→14:07)
[2022-04-24] MEDS: DORZOLAMIDE 2% OPHTH 10 ML BOTTLE BOTHEYE SCH ×3 (05:52→21:34)
[2022-04-24] MEDS: BLOOD SUGAR DIAGNOSTIC STRIP TEST SCH ×4 (05:52→20:49)
[2022-04-24] MEDS: INSULIN LISPRO 100 UNITS/ML SUBCUT SCH ×4 (06:12→20:49)
[2022-04-24 06:18] LABS: HEMATOCRIT. 21.4 % (42.0-52.0); MEAN CORPUSCULAR HEMOGLOBIN 29.3 pg (28.0-32.0); MEAN CORPUSCULAR VOLUME 94.4 fL (80.0-94.0); MEAN PLATELET VOLUME 8.1 fl (7.4-10.4); RED BLOOD CELL COUNT 2.27 mill/uL (4.7-6.1); RED CELL DISTRIBUTION WIDTH 19.4 % (11.6-14.6)
[2022-04-24 07:34] LABS: CLARITY URINE CLOUDY (CLEAR); COLOR URINE DARK YELLOW (YELLOW); KETONES URINE NEGATIVE (NEGATIVE); LEUKOCYTE ESTERASE URINE NEGATIVE (NEGATIVE); NITRITE URINE NEGATIVE (NEGATIVE); OCCULT BLOOD URINE NEGATIVE (NEGATIVE); PH URINE 5.5 (4.5-8.0); PROTEIN URINE 2+ (NEGATIVE); SPECIFIC GRAVITY URINE 1.019 (1.005-1.030)
[2022-04-24 07:34] LABS: CHLORIDE 114 mEq/L (98-107)
[2022-04-24 07:49] LABS: HEMOGLOBIN. 6.7 g/dL (14.0-18.0)
[2022-04-24 07:50] LABS: PLATELET 40 x1000/uL (130-400)
[2022-04-24] MEDS: FINASTERIDE 5MG TABLET PO SCH (09:00)
[2022-04-24] MEDS: CARVEDILOL 3.125 MG TABLET PO SCH ×2 (09:00→20:57)
[2022-04-24] MEDS: FOLIC ACID 1MG TABLET PO SCH (09:00)
[2022-04-24] MEDS: PANTOPRAZOLE SODIUM 40 MG/VIAL IV SCH (09:12)
[2022-04-24 09:53] LABS: BG CARBOXYHEMOGLOBIN 0.9 % (0.5-1.5); BG DEOXYHEMOGLOBIN 3.3 % (0.0-5.0); BG HCO3 ACT 23.8 mmol/L (22.0-26.0); BG METHEMOGLOBIN 0.4 % (0.0-1.5); BG OXYGEN SATURATION 96.7 % (92.0-98.5); BG OXYHEMOGLOBIN 95.4 % (94.0-97.0); BG PCO2 34.5 mmHg (35.0-45.0); BG PH 7.457 (7.350-7.450); BG PO2 87.1 mmHg (75.0-100.0); BG SAMPLE SITE RIGHT RADIAL; BG TOTAL HEMOGLOBIN 6.5 g/dL (12.0-18.0); BG VENT MODE NASAL CANNULA
[2022-04-24 13:36] LABS: PLATELET ESTIMATE MARKEDLY DECREASED
[2022-04-24] MEDS: DOXYCYCLINE HYCLATE 100MG CAPSULE PO SCH (18:15)
[2022-04-24] MEDS ORDERED: CEFTRIAXONE 2 G PREMIX 50 ML IV SCH (18:15)
[2022-04-24] MEDS: CEFTRIAXONE 2 G in DEXTROSE 5% WATER 50 ML IV SCH (20:49)
[2022-04-24 21:15] LABS: HEMATOCRIT 28.5 % (42.0-52.0); HEMOGLOBIN 9.1 g/dL (14.0-18.0)
[2022-04-24] MEDS: LATANOPROST 0.005% OPHTH DROPS 2.5ML EACHEYE SCH (21:34)
[2022-04-25] VITALS: BP_SYST 61
[2022-04-25] MEDS: DEXT 5%/0.45% NACL 1000ML 1,000 ML IV SCH ×2 (03:06→16:10)
[2022-04-25 03:26] VITALS: BP 118/61
[2022-04-25] MEDS: DORZOLAMIDE 2% OPHTH 10 ML BOTTLE BOTHEYE SCH ×3 (06:00→21:06)
[2022-04-25 06:35] LABS: HEMATOCRIT. 23.5 % (42.0-52.0); MEAN CORPUSCULAR HEMOGLOBIN 29.5 pg (28.0-32.0); MEAN PLATELET VOLUME 7.2 fl (7.4-10.4); PLATELET 67 x1000/uL (130-400); RED BLOOD CELL COUNT 2.64 mill/uL (4.7-6.1); RED CELL DISTRIBUTION WIDTH 17.6 % (11.6-14.6)
[2022-04-25] MEDS: BLOOD SUGAR DIAGNOSTIC STRIP TEST SCH ×4 (06:35→20:22)
[2022-04-25] MEDS: INSULIN LISPRO 100 UNITS/ML SUBCUT SCH ×4 (06:35→20:23)
[2022-04-25 06:49] LABS: HEMOGLOBIN. 7.8 g/dL (14.0-18.0)
[2022-04-25 07:08] LABS: CHLORIDE 117 mEq/L (98-107)
[2022-04-25 08:00] VITALS: BP 121/60
[2022-04-25] MEDS: FINASTERIDE 5MG TABLET PO SCH (08:21)
[2022-04-25] MEDS: FOLIC ACID 1MG TABLET PO SCH (08:21)
[2022-04-25] MEDS: DOXYCYCLINE HYCLATE 100MG CAPSULE PO SCH ×2 (08:21→20:27)
[2022-04-25] MEDS: PANTOPRAZOLE SODIUM 40 MG/VIAL IV SCH (08:22)
[2022-04-25] MEDS: CARVEDILOL 3.125 MG TABLET PO SCH ×2 (08:22→20:23)
[2022-04-25 12:00] VITALS: BP 110/81
[2022-04-25 13:29] LABS: PLATELET ESTIMATE DECREASED
[2022-04-25 16:00] VITALS: BP 122/88
[2022-04-25 20:00] VITALS: BP 96/59
[2022-04-25] MEDS: CEFTRIAXONE 2 G in DEXTROSE 5% WATER 50 ML IV SCH (20:27)
[2022-04-25] MEDS: LATANOPROST 0.005% OPHTH DROPS 2.5ML EACHEYE SCH (20:28)
[2022-04-26] VITALS: BP 106/56
[2022-04-26 04:00] VITALS: BP 110/63
[2022-04-26] MEDS: BLOOD SUGAR DIAGNOSTIC STRIP TEST SCH ×3 (05:44→21:00)
[2022-04-26] MEDS: DORZOLAMIDE 2% OPHTH 10 ML BOTTLE BOTHEYE SCH ×2 (06:04→21:02)
[2022-04-26] MEDS: DEXT 5%/0.45% NACL 1000ML 1,000 ML IV SCH ×2 (06:04→19:36)
[2022-04-26] MEDS: INSULIN LISPRO 100 UNITS/ML SUBCUT SCH ×4 (06:10→21:00)
[2022-04-26 06:11] LABS: HEMATOCRIT. 25.4 % (42.0-52.0); HEMOGLOBIN. 8.1 g/dL (14.0-18.0); MEAN CORPUSCULAR HEMOGLOBIN 29.2 pg (28.0-32.0); MEAN CORPUSCULAR VOLUME 91.3 fL (80.0-94.0); MEAN PLATELET VOLUME 7.6 fl (7.4-10.4); PLATELET 57 x1000/uL (130-400); RED BLOOD CELL COUNT 2.78 mill/uL (4.7-6.1); RED CELL DISTRIBUTION WIDTH 18.1 % (11.6-14.6)
[2022-04-26 08:00] VITALS: BP 118/67
[2022-04-26 08:07] LABS: FOLICLE STIMULATING HORMONE 2.6 mIU/mL (1.5-12.4); HIV SCREEN 4G Non Reactive (Non Reactive); LUTEINIZING HORMONE <0.3 mIU/mL (1.7-8.6); PROLACTIN 1.7 ng/mL (4.0-15.2)
[2022-04-26 08:23] LABS: CHLORIDE 115 mEq/L (98-107)
[2022-04-26 09:11] LABS: IMMUNOGLOBULIN A 122 mg/dL (61-437); IMMUNOGLOBULIN G 763 mg/dL (603-1613); IMMUNOGLOBULIN M 61 mg/dL (15-143)
[2022-04-26] MEDS: PANTOPRAZOLE SODIUM 40 MG/VIAL IV SCH (11:40)
[2022-04-26] MEDS: FOLIC ACID 1MG TABLET PO SCH (11:41)
[2022-04-26] MEDS: FINASTERIDE 5MG TABLET PO SCH (11:41)
[2022-04-26] MEDS: DOXYCYCLINE HYCLATE 100MG CAPSULE PO SCH ×2 (11:41→21:02)
[2022-04-26] MEDS: CARVEDILOL 3.125 MG TABLET PO SCH ×2 (11:41→21:03)
[2022-04-26 12:00] VITALS: BP_SYST 111; BP_SYST 118; BP_DIAS 68; BP_DIAS 70
[2022-04-26 16:00] VITALS: BP 111/70
[2022-04-26] MEDS: LATANOPROST 0.005% OPHTH DROPS 2.5ML EACHEYE SCH ×2 (17:05→19:38)
[2022-04-26 17:45] LABS: PLATELET ESTIMATE MARKEDLY DECREASED
[2022-04-26 20:00] VITALS: BP 117/76
[2022-04-26] MEDS: CEFTRIAXONE 2 G in DEXTROSE 5% WATER 50 ML IV SCH (20:35)
[2022-04-27] VITALS (7 sets, daily range): BP systolic 90–103; BP diastolic 40–65
[2022-04-27] MEDS ORDERED: POTASSIUM CHLORIDE 20MEQ TABLET SR PO NR (00:15)
[2022-04-27] MEDS: DORZOLAMIDE 2% OPHTH 10 ML BOTTLE BOTHEYE SCH ×3 (05:11→20:54)
[2022-04-27] MEDS: BLOOD SUGAR DIAGNOSTIC STRIP TEST SCH ×4 (06:02→20:54)
[2022-04-27] MEDS: INSULIN LISPRO 100 UNITS/ML SUBCUT SCH ×4 (06:35→21:00)
[2022-04-27] MEDS: CARVEDILOL 3.125 MG TABLET PO SCH ×2 (08:29→20:47)
[2022-04-27] MEDS: DOXYCYCLINE HYCLATE 100MG CAPSULE PO SCH ×2 (09:58→20:48)
[2022-04-27] MEDS: FOLIC ACID 1MG TABLET PO SCH (09:58)
[2022-04-27] MEDS: DEXT 5%/0.45% NACL 1000ML 1,000 ML IV SCH (09:58)
[2022-04-27] MEDS: PANTOPRAZOLE SODIUM 40 MG/VIAL IV SCH (09:58)
[2022-04-27] MEDS: FINASTERIDE 5MG TABLET PO SCH (09:58)
[2022-04-27 14:11] LABS: HEMATOCRIT. 24.2 % (42.0-52.0); HEMOGLOBIN. 7.7 g/dL (14.0-18.0); MEAN CORPUSCULAR HEMOGLOBIN 28.9 pg (28.0-32.0); MEAN CORPUSCULAR VOLUME 90.7 fL (80.0-94.0); RED BLOOD CELL COUNT 2.67 mill/uL (4.7-6.1); RED CELL DISTRIBUTION WIDTH 18.7 % (11.6-14.6)
[2022-04-27 14:38] LABS: CHLORIDE 113 mEq/L (98-107)
[2022-04-27 15:32] LABS: PLATELET ESTIMATE MARKEDLY DECREASED
[2022-04-27 15:33] LABS: PLATELET 38 x1000/uL (130-400)
[2022-04-27] MEDS ORDERED: SODIUM HYPOCHLORITE (0.25%) 480ML SOLUTION (HALF STRENGTH) TOP SCH (16:30)
[2022-04-27] MEDS: CEFTRIAXONE 2 G in DEXTROSE 5% WATER 50 ML IV SCH (20:48)
[2022-04-27] MEDS: LATANOPROST 0.005% OPHTH DROPS 2.5ML EACHEYE SCH (20:48)
[2022-04-28] VITALS: BP 145/76
== END 2022-04-28 05:20 | DRG 177 ==
LOC: ER 14:51 → 7EST 17:09 → EDBEDREQTM 17:16 → EDBEDREQ 17:16 → ENRESERV 17:29
PROVIDERS: ADMIT Internal Medicine; ATTEND Internal Medicine
PROC: 05HY33Z Insertion of Infusion Device into Upper Vein, Percutaneous Approach (ICD-10-PCS; principal; 2022-04-24)
PROC: B54NZZA Ultrasonography of Left Upper Extremity Veins, Guidance (ICD-10-PCS; 2022-04-24)
PROC: 30233N1 Transfusion of Nonautologous Red Blood Cells into Peripheral Vein, Percutaneous Approach (ICD-10-PCS; 2022-04-24)
DX: U07.1 COVID-19 (principal); G92.8 Other toxic encephalopathy; J12.82 Pneumonia due to coronavirus disease 2019; I82.621 Acute embolism and thrombosis of deep veins of right upper extremity; I13.0 Hypertensive heart and chronic kidney disease with heart failure and stage 1 through stage 4 chronic kidney disease, or unspecified chronic kidney disease; I50.9 Heart failure, unspecified; D69.6 Thrombocytopenia, unspecified; R74.01 Elevation of levels of liver transaminase levels; E88.09 Other disorders of plasma-protein metabolism, not elsewhere classified; L89.150 Pressure ulcer of sacral region, unstageable; K76.0 Fatty (change of) liver, not elsewhere classified; N18.9 Chronic kidney disease, unspecified; D63.1 Anemia in chronic kidney disease; F03.90 Unspecified dementia, unspecified severity, without behavioral disturbance, psychotic disturbance, mood disturbance, and anxiety; Z95.0 Presence of cardiac pacemaker
CPT/HCPCS: 36415; 36573; 36600; 71045; 76700; 80048; 80053; 80061; 81003; 82040; 82140; 82270; 82375; 82533; 82607; 82668; 82728; 82746; 82784; 82805; 82962; 83001; 83002; 83010; 83036; 83540; 83550; 83615; 84134; 84145; 84146; 84439; 84443; 84481; 85014; 85018; 85025; 85044; 86334; 86705; 86709; 86803; 86850; 86880; 86900; 86920; 87340; 87389; 87426; 92610; 93005; 93970; 99285; C1725; C9113; C9803; J0696; J1815; J7030; J7060; P9016

== ENCOUNTER 2022-04-28 05:33 | Inpatient (IN) | payer OTHER, MEDICAID ==
[~2022-04-28] VITALS: Ht 182.9 cm; Wt 105.2 kg
[2022-04-28] MEDS ORDERED: PIPERACILLIN/TAZ 3.375G PREMIX 50 ML IV ONE (05:45)
[2022-04-28] MEDS ORDERED: SODIUM CHLORIDE 0.9% 1,000 ML IV ONE (05:45)
[2022-04-28] MEDS ORDERED: VANCOMYCIN 1G PREMIX 200 ML IV ONE (05:45)
[2022-04-28 06:38] LABS: HEMATOCRIT. 23.7 % (42.0-52.0); HEMOGLOBIN. 7.7 g/dL (14.0-18.0); MEAN CORPUSCULAR HEMOGLOBIN 29.3 pg (28.0-32.0); MEAN CORPUSCULAR VOLUME 89.9 fL (80.0-94.0); MEAN PLATELET VOLUME 8.1 fl (7.4-10.4); RED BLOOD CELL COUNT 2.64 mill/uL (4.7-6.1)
[2022-04-28 06:41] LABS: CHLORIDE 114 mEq/L (98-107)
[2022-04-28 06:47] LABS: INR 1.2; PROTHROMBIN TIME 13.1 sec (9.6-11.0)
[2022-04-28 07:00] LABS: PLATELET 32 x1000/uL (130-400)
[2022-04-28] MEDS ORDERED: SODIUM CHLORIDE 0.9% 1000ML BAG (SEPSIS BOLUS) IV ONE (07:00)
[2022-04-28] MEDS ORDERED: NOREPINEPHRINE 8MG/250ML PMX 250 ML IV STA (07:51)
[2022-04-28] MEDS ORDERED: NOREPINEPHRINE 8 MG in DEXTROSE 5% WATER 250 ML IV NR (08:15)
[2022-04-28 08:49] LABS: PLATELET ESTIMATE MARKEDLY DECREASED
[2022-04-28] MEDS ORDERED: DEXAMETHASONE 4MG/ML 1ML VIAL IV SCH (10:30)
[2022-04-28] MEDS ORDERED: NOREPINEPHRINE 8 MG in DEXTROSE 5% WATER 250 ML IV PRN (14:15)
[2022-04-28 15:01] LABS: T4 FREE 0.91 ng/dL (0.76-1.46)
[2022-04-28] MEDS: IPRATROPIUM/ALBUTEROL 0.5-3(2.5)MG/3ML NEB HHN SCH ×2 (15:02→20:45)
[2022-04-28] MEDS ORDERED: CEFTRIAXONE 2 G PREMIX 50 ML IV SCH (18:15)
[2022-04-28] MEDS ORDERED: POTASSIUM PHOS,M-BASIC-D-BASIC 20 MMOL in DEXT 5% WATER 243.3333 ML IV NR (18:15)
[2022-04-28] MEDS ORDERED: AZITHROMYCIN 500MG/250ML 250 ML IV NR (18:15)
[2022-04-28] MEDS ORDERED: DEXT 5%/0.45% NACL 1000ML 1,000 ML IV ONE (18:15)
[2022-04-28] MEDS: GUAIFENESIN 600MG ER TABLET PO SCH (21:00)
[2022-04-28] MEDS: CEFTRIAXONE 2 G in DEXTROSE 5% WATER 50 ML IV SCH (23:30)
[2022-04-28] MEDS: PANTOPRAZOLE SODIUM 40 MG/VIAL IV SCH (23:30)
[2022-04-29] MEDS ORDERED: NOREPINEPHRINE 8 MG in DEXT 5% WATER 242 ML IV PRN ×2
[2022-04-29] MEDS: IPRATROPIUM/ALBUTEROL 0.5-3(2.5)MG/3ML NEB HHN SCH ×8 (00:15→23:45)
[2022-04-29 00:31] LABS: CLARITY URINE CLOUDY (CLEAR); COLOR URINE DARK YELLOW (YELLOW); KETONES URINE NEGATIVE (NEGATIVE); LEUKOCYTE ESTERASE URINE TRACE (NEGATIVE); NITRITE URINE NEGATIVE (NEGATIVE); OCCULT BLOOD URINE NEGATIVE (NEGATIVE); PH URINE 5.5 (4.5-8.0); PROTEIN URINE 1+ (NEGATIVE); SPECIFIC GRAVITY URINE 1.019 (1.005-1.030)
[2022-04-29 05:31] LABS: HEMATOCRIT 25.2 % (42.0-52.0); HEMOGLOBIN 7.9 g/dL (14.0-18.0); MEAN CORPUSCULAR HEMOGLOBIN 28.3 pg (28.0-32.0); MEAN CORPUSCULAR VOLUME 90.1 fL (80.0-94.0); PLATELET 60 x1000/uL (130-400); RED CELL DISTRIBUTION WIDTH 18.3 % (11.6-14.6)
[2022-04-29 05:39] LABS: CHLORIDE 111 mEq/L (98-107)
[2022-04-29 05:48] LABS: PHOSPHORUS 3.7 mg/dL (2.5-4.9)
[2022-04-29] MEDS ORDERED: SODIUM CHLORIDE 0.9% 1000ML BAG (SEPSIS BOLUS) IV NR (07:00)
[2022-04-29] MEDS: DEXT 5%/0.9% NACL 1,000 ML IV SCH ×2 (07:00→17:00)
[2022-04-29] MEDS ORDERED: MAGNESIUM 2 G PREMIX 50 ML IV NR (08:00)
[2022-04-29] MEDS ORDERED: AZITHROMYCIN 500MG/250ML 250 ML IV NR (09:00)
[2022-04-29] MEDS: DEXAMETHASONE 10 MG/ML VIAL IV SCH (09:00)
[2022-04-29 10:40] LABS: BG BASE EXCESS -6.2 mmol/L (-2.0-2.0); BG CARBOXYHEMOGLOBIN 0.3 % (0.5-1.5); BG DEOXYHEMOGLOBIN 6.7 % (0.0-5.0); BG HCO3 ACT 17.7 mmol/L (22.0-26.0); BG METHEMOGLOBIN 0.3 % (0.0-1.5); BG OXYGEN SATURATION 93.3 % (92.0-98.5); BG OXYHEMOGLOBIN 92.7 % (94.0-97.0); BG PH 7.403 (7.350-7.450); BG PO2 66.2 mmHg (75.0-100.0); BG SAMPLE SITE RIGHT RADIAL; BG TOTAL HEMOGLOBIN 8.9 g/dL (12.0-18.0); BG VENT MODE NASAL CANNULA
[2022-04-29 14:29] LABS: GAMMA GLUTAMYL TRANSPEPTIDASE 58 IU/L (11-50)
[2022-04-29] MEDS ORDERED: IOHEXOL-350 100 ML BOTTLE ONE (15:17)
[2022-04-29] MEDS: GUAIFENESIN 600MG ER TABLET PO SCH ×2 (17:18→21:00)
[2022-04-29] MEDS: MIDODRINE HCL 5MG TABLET PO SCH ×2 (17:19→19:30)
[2022-04-29] MEDS ORDERED: NOREPINEPHRINE 8MG/250ML PMX 250 ML IV PRN (18:00)
[2022-04-29] MEDS: CEFTRIAXONE 2 G in DEXTROSE 5% WATER 50 ML IV SCH (18:15)
[2022-04-29] MEDS: VANCOMYCIN 750MG PREMIX 150 ML IV SCH (20:00)
[2022-04-29] MEDS: FUROSEMIDE 40MG/4ML VIAL IVP SCH (20:30)
[2022-04-29] MEDS: SODIUM HYPOCHLORITE 0.125% 473ML SOLUTION TOP SCH (21:00)
[2022-04-29] MEDS: PANTOPRAZOLE SODIUM 40 MG/VIAL IV SCH (21:49)
[2022-04-29 23:37] LABS: HEMATOCRIT 24.6 % (42.0-52.0); HEMOGLOBIN 7.8 g/dL (14.0-18.0); MEAN CORPUSCULAR HEMOGLOBIN 28.4 pg (28.0-32.0); MEAN CORPUSCULAR VOLUME 89.8 fL (80.0-94.0); PLATELET 70 x1000/uL (130-400); RED BLOOD CELL COUNT 2.74 mill/uL (4.7-6.1); RED CELL DISTRIBUTION WIDTH 19.3 % (11.6-14.6)
[2022-04-30] VITALS (20 sets, daily range): BP systolic 91–122; BP diastolic 56–69
[2022-04-30] MEDS: IPRATROPIUM/ALBUTEROL 0.5-3(2.5)MG/3ML NEB HHN SCH ×4 (03:28→15:17)
[2022-04-30] MEDS: MIDODRINE HCL 5MG TABLET PO SCH ×3 (03:30→19:30)
[2022-04-30 06:17] LABS: HEMATOCRIT. 25.1 % (42.0-52.0); HEMOGLOBIN. 7.9 g/dL (14.0-18.0); MEAN CORPUSCULAR VOLUME 92.4 fL (80.0-94.0); MEAN PLATELET VOLUME 7.8 fl (7.4-10.4); PLATELET 72 x1000/uL (130-400); RED BLOOD CELL COUNT 2.72 mill/uL (4.7-6.1)
[2022-04-30 06:27] LABS: CHLORIDE 108 mEq/L (98-107)
[2022-04-30] MEDS: VANCOMYCIN 750MG PREMIX 150 ML IV SCH ×2 (08:34→21:10)
[2022-04-30] MEDS: GUAIFENESIN 600MG ER TABLET PO SCH ×2 (09:00→20:37)
[2022-04-30] MEDS: SODIUM HYPOCHLORITE 0.125% 473ML SOLUTION TOP SCH (09:00)
[2022-04-30] MEDS: DEXAMETHASONE 10 MG/ML VIAL IV SCH (09:32)
[2022-04-30] MEDS: AZITHROMYCIN 500 MG in DEXT 5% WATER 250 ML IV SCH (09:33)
[2022-04-30] MEDS: FUROSEMIDE 40MG/4ML VIAL IVP SCH (09:33)
[2022-04-30 10:53] LABS: PLATELET ESTIMATE DECREASED
[2022-04-30] MEDS: ENOXAPARIN 100MG/ML SYR SUBCUT SCH ×2 (12:43→23:26)
[2022-04-30] MEDS: PANTOPRAZOLE SODIUM 40 MG/VIAL IV SCH (20:36)
[2022-04-30] MEDS: CEFTRIAXONE 2 G in DEXTROSE 5% WATER 50 ML IV SCH (21:10)
[2022-05-01] VITALS (76 sets, daily range): BP systolic 26–119; BP diastolic 19–77
[2022-05-01] MEDS: NOREPINEPHRINE 32 MG in DEXT 5% WATER 218 ML IV PRN ×2 (00:30→11:23)
[2022-05-01] MEDS: IPRATROPIUM/ALBUTEROL 0.5-3(2.5)MG/3ML NEB HHN SCH ×4 (01:08→12:22)
[2022-05-01] MEDS: MIDODRINE HCL 5MG TABLET PO SCH ×2 (03:30→11:30)
[2022-05-01 05:32] LABS: HEMOGLOBIN 7.6 g/dL (14.0-18.0); MEAN CORPUSCULAR HEMOGLOBIN 28.6 pg (28.0-32.0); MEAN CORPUSCULAR VOLUME 90.1 fL (80.0-94.0); PLATELET 76 x1000/uL (130-400); RED BLOOD CELL COUNT 2.66 mill/uL (4.7-6.1); RED CELL DISTRIBUTION WIDTH 18.9 % (11.6-14.6)
[2022-05-01 05:45] LABS: CHLORIDE 105 mEq/L (98-107)
[2022-05-01 05:57] LABS: PHOSPHORUS 4.4 mg/dL (2.5-4.9)
[2022-05-01] MEDS: DEXAMETHASONE 10 MG/ML VIAL IV SCH (08:13)
[2022-05-01] MEDS: VANCOMYCIN 750MG PREMIX 150 ML IV SCH (08:13)
[2022-05-01] MEDS: GUAIFENESIN 600MG ER TABLET PO SCH (08:14)
[2022-05-01] MEDS: SODIUM HYPOCHLORITE 0.125% 473ML SOLUTION TOP SCH ×2 (11:23→13:49)
[2022-05-01] MEDS: AZITHROMYCIN 500 MG in DEXT 5% WATER 250 ML IV SCH (11:23)
[2022-05-01] MEDS ORDERED: PHENYLEPHRINE 100 MG in DEXT 5% WATER 240 ML IV PRN (13:00)
[2022-05-01 13:43] LABS: BG BASE EXCESS -16.8 mmol/L (-2.0-2.0); BG CARBOXYHEMOGLOBIN 1.1 % (0.5-1.5); BG DEOXYHEMOGLOBIN 0.1 % (0.0-5.0); BG FRACTION INSPIRED OXYGEN 100; BG METHEMOGLOBIN 0.6 % (0.0-1.5); BG OXYGEN SATURATION 99.9 % (92.0-98.5); BG OXYHEMOGLOBIN 98.2 % (94.0-97.0); BG PCO2 21.5 mmHg (35.0-45.0); BG PH 7.239 (7.350-7.450); BG PO2 476.8 mmHg (75.0-100.0); BG SAMPLE SITE RIGHT BRACHIAL; BG TOTAL HEMOGLOBIN 7.2 g/dL (12.0-18.0); BG VENT MODE VENT - AC
[2022-05-01] MEDS: ENOXAPARIN 100MG/ML SYR SUBCUT SCH (13:50)
[2022-05-01] MEDS ORDERED: SODIUM BICARBONATE 8.4% 1 MEQ/ML 50ML SYR IV NR ×2 (14:23→14:30)
[2022-05-01] MEDS ORDERED: SODIUM BICARBONATE 150 MEQ in DEXTROSE 5% WATER 1,000 ML IV SCH (15:00)
[2022-05-01] MEDS ORDERED: EPINEPHRINE 10 MG in SODIUM CHLORIDE 0.9% 240 ML IV PRN (15:15)
[2022-05-01] MEDS ORDERED: SODIUM CHLORIDE 0.9% 1000ML BAG (SEPSIS BOLUS) IV NR (15:15)
[2022-05-01] MEDS ORDERED: VASOPRESSIN 20 UNIT in SODIUM CHLORIDE 0.9% 99 ML IV PRN (16:00)
[2022-05-02] MEDS ORDERED: VANCOMYCIN 750MG PREMIX 150 ML IV SCH (09:00)
== END 2022-05-01 19:41 | DRG 871 ==
LOC: ER 05:45 → MICUSO 07:10 → EDBEDREQTM 07:24 → EDBEDREQ 07:24 → MICUSO 04-30 19:43
PROVIDERS: ADMIT Internal Medicine; ATTEND Internal Medicine
PROC: 5A1935Z Respiratory Ventilation, Less than 24 Consecutive Hours (ICD-10-PCS; principal; 2022-05-01)
PROC: 0BH17EZ Insertion of Endotracheal Airway into Trachea, Via Natural or Artificial Opening (ICD-10-PCS; 2022-05-01)
PROC: 5A12012 Performance of Cardiac Output, Single, Manual (ICD-10-PCS; 2022-05-01)
DX: A41.81 Sepsis due to Enterococcus (principal); G92.8 Other toxic encephalopathy; J12.82 Pneumonia due to coronavirus disease 2019; U07.1 COVID-19; R65.21 Severe sepsis with septic shock; J96.01 Acute respiratory failure with hypoxia; E87.20 Acidosis, unspecified; D69.3 Immune thrombocytopenic purpura; I13.0 Hypertensive heart and chronic kidney disease with heart failure and stage 1 through stage 4 chronic kidney disease, or unspecified chronic kidney disease; I82.403 Acute embolism and thrombosis of unspecified deep veins of lower extremity, bilateral; I82.621 Acute embolism and thrombosis of deep veins of right upper extremity; J44.0 Chronic obstructive pulmonary disease with (acute) lower respiratory infection; N39.0 Urinary tract infection, site not specified; D68.59 Other primary thrombophilia; J44.9 Chronic obstructive pulmonary disease, unspecified; I50.9 Heart failure, unspecified; D69.6 Thrombocytopenia, unspecified; R74.01 Elevation of levels of liver transaminase levels; K76.0 Fatty (change of) liver, not elsewhere classified; D63.1 Anemia in chronic kidney disease; E66.01 Morbid (severe) obesity due to excess calories; E88.09 Other disorders of plasma-protein metabolism, not elsewhere classified; N18.9 Chronic kidney disease, unspecified; E11.22 Type 2 diabetes mellitus with diabetic chronic kidney disease; R16.1 Splenomegaly, not elsewhere classified; E87.6 Hypokalemia; E83.42 Hypomagnesemia; Z68.31 Body mass index [BMI] 31.0-31.9, adult; Z79.899 Other long term (current) drug therapy; Z95.0 Presence of cardiac pacemaker
CPT/HCPCS: 31500; 36415; 36600; 71045; 71275; 74177; 76700; 80048; 80053; 80202; 81003; 82375; 82533; 82728; 82805; 82962; 82977; 83540; 83550; 83605; 83615; 83735; 83880; 84100; 84145; 84439; 84443; 84484; 85025; 85027; 85379; 85651; 87077; 87186; 87426; 87804; 93005; 93970; 94640; 99291; A6261; C9113; J0456; J0696; J1100; J1650; J1940; J2370; J2543; J3370; J3475; J3490; J7030; J7042; J7050; J7060; J7070; Q9967; U0003; U0005